=== PATIENT | male | born 1985 | race African-American/Black ===

== ENCOUNTER 2018-09-30 11:01 | Emergency (ER) | payer OTHER ==
[~2018-09-30] VITALS: Ht 157.5 cm; Wt 63.5 kg
[2018-09-30 11:51] LABS: PLATELET COUNT 238 K/uL (142-355)
[2018-09-30 11:58] LABS: POTASSIUM 3.7 mmol/L (3.6-5.2)
[2018-09-30 12:44] VITALS: BP 121/79; TEMP 98
== END 2018-09-30 12:55 | disposition home or self-care (01) ==
LOC: ED 11:01
PROVIDERS: Family Medicine
DX: T67.5XXA Heat exhaustion, unspecified, initial encounter (principal); E86.0 Dehydration
CPT/HCPCS: 36415; 80053; 80307; 81000; 85027; 96365; 96374; 99284; J2405